=== PATIENT | male | born 1975 | race Caucasian/White ===

== ENCOUNTER → 2021-06-14 | Outpatient (CLI) | payer OTHER ==
--- NOTE | 2021-06-14 13:06 | KCIC ---
EXAMINATION: MRI RIGHT LOWER EXTREMITY JOINT WITHOUT INDICATIONS: Right knee pain and swelling, especially about the patella TECHNIQUE: Multiplanar multisequence MRI of the right knee was obtained without contrast. COMPARISON: None. FINDINGS: MENISCI: Mild blunting of the free edge lateral meniscus suspicious for fraying. No discrete menisca l tear of the medial or lateral meniscus. LIGAMENTS: The anterior and posterior cruciate ligaments are intact. The medial collateral ligament and lateral collateral ligament complex are intact. EXTENSOR MECHANISM: Mild thickening and increased signal in the distal quadriceps tendon and in the distal patellar tendon could reflect mild tendinopathy. Patellar tendon is intact. Retinacula are int act. Fat pads are normal. BONES AND CARTILAGE: There is mild lateral subluxation of the patella. There is a deep cartilage fiss ure at the lateral patellar facet. Full-thickness or full-thickness cartilage loss at the trochlear g roove. There is a small area of superficial and deep partial-thickness cartilage loss in the weightbe aring medial femoral condyle. Medial tibial plateau cartilage is intact. There is mild superficial pa rtial-thickness cartilage loss in the posterior lateral tibial plateau. Lateral femoral condyle carti pedro is intact.. Marrow signal is normal. No acute fracture. OTHER: There is a large joint effusion. There is a leaking Askew cyst measuring approximately 3.8 x 2.3 x 4.0 cm. Muscles and remaining tendons are intact. Mild subcutaneous edema anteriorly and medial ly. IMPRESSION: 1. Overall mild tricompartmental cartilage loss, greatest in the patellofemoral compartment where the re is deep partial or full-thickness cartilage loss at the trochlear groove. 2. Mild tendinopathy of the distal quadriceps and distal patellar tendons. 3. Lateral subluxation of the patella. 4. Large joint effusion. Leaking Askew cyst. Electronically signed by: Heather Dale MD (06/14/2021 1:04 PM) [id number]
== END ==
LOC: KCIC MRI 10:11
PROVIDERS: ATTEND Family Medicine
DX: S83.011A Lateral subluxation of right patella, initial encounter (principal); M25.461 Effusion, right knee; M71.21 Synovial cyst of popliteal space [Baker], right knee; X58.XXXA Exposure to other specified factors, initial encounter; Y93.89 Activity, other specified; Y92.89 Other specified places as the place of occurrence of the external cause; Y99.8 Other external cause status
CPT/HCPCS: 73721

== ENCOUNTER → 2021-11-09 | Outpatient (CLI) | payer OTHER ==
[~2021-11-09] MED LIST: CETI10TA74 PO; GADOTERATE 5 MMOL/10ML VIAL. INT ART ONE; IOHEXOL 300 MG/ML 50 ML VIAL. INT ART ONE; LIDOCAINE 1% Multi-Dose 20 ML VIAL. ID ONE
--- NOTE | 2021-11-10 11:23 | KCIC ---
STUDY: MRI arthrogram of the right shoulder INDICATION: Right shoulder pain. Decreased range of motion. COMPARISON: None. TECHNIQUE: Multiplanar MR imaging of the right shoulder performed after the intra-articular injection of contrast material. The injection portion of the procedure is detailed in a separate report. FINDINGS: AC joint: Mild arthrosis. Minimal made of fluid within the subacromial subdeltoid bursa. Rotator cuff: High-grade/near full-thickness bursal sided tear of the insertional supraspinatus begin cammie just posterior to the leading edge and approaching the infraspinatus junction. The tear defect m easures up to 12 mm mediolateral by 13 mm AP, image 11 series 7 and image 20 series 5, respectively. Mild background supraspinatus tendinosis. Intact infraspinatus, teres minor and subscapularis. Rotato r cuff muscular bulk is maintained. Labrum: Intact. Long head biceps tendon: Intact and normally located. Cartilage: Intact. Bones: Mild reactive marrow edema of the greater tuberosity subjacent to the supraspinatus tear. Mild degenerative remodeling of the greater tuberosity. Impression: 1. High-grade/near full-thickness bursal sided tear of the insertional supraspinatus beginning just p osterior to the leading edge and measuring approximately 12 mm mediolateral by 13 mm AP. Background m ild supraspinatus tendinosis. The rest of the rotator cuff is intact. Normal muscular bulk. 2. Intact labrum and long head biceps. Mild arthrosis at the AC joint. Electronically signed by: HANNA PRECIADO MD (11/10/2021 10:25 AM) [id number]
--- NOTE | 2021-11-10 11:23 | KCIC ---
Study: Fluoroscopically guided arthrogram of the right shoulder joint for MRI Indication: Right shoulder pain. Contrast: 2 cc Omnipaque 300; 0.1 cc Clariscan Technique: A timeout was performed prior to beginning the procedure in order to confirm patient identity and lat erality of the injection. The risks, benefits and alternatives of the procedure were discussed. Utilizing sterile technique, fluoroscopic guidance and local anesthesia with 1% lidocaine, the right shoulder joint was accessed utilizing a 22-gauge, 3.5" spinal needle. Confirmation of needle position was obtained with a small amount of radiopaque contrast. Subsequently, 12 cc of a mixture containing 5 cc lidocaine, 15 cc saline and 0.1 cc Clariscan was injected. There were no immediate post procedu re complications. Fluoroscopy time: 12 seconds Number of images obtained: 2 Impression: Technically successful fluoroscopic guided arthrogram of the right shoulder joint without immediate p ostprocedure complication. Electronically signed by: HANNA PRECIADO MD (11/10/2021 10:20 AM) [id number]
== END | disposition home or self-care (01) ==
LOC: KCIC 13:12
PROVIDERS: ATTEND Family Medicine
DX: M25.511 Pain in right shoulder (principal); M19.011 Primary osteoarthritis, right shoulder; Z79.899 Other long term (current) drug therapy
CPT/HCPCS: 23350; 73222; 77002; A9575; J3490; Q9967